=== PATIENT | female | born 1955 | race African-American/Black ===

== ENCOUNTER 2017-07-25 18:05 | Emergency (ER) | payer MEDICARE, MEDICAID ==
[~2017-07-25] VITALS: Ht 165.1 cm; Wt 61.0 kg
[~2017-07-25 18:05] MED LIST: AROM25 MT; ATOR10TA69 PO; BENA20TA3 PO; OMEP20CA10 PO
[2017-07-25] MEDS ORDERED: SODIUM CHLORIDE 0.9% 1,000 ML IV ONE (18:45)
[2017-07-25] MEDS ORDERED: METOCLOPRAMIDE HCL 10MG/2ML VIAL IV ONE (18:45)
[2017-07-25] MEDS ORDERED: DIPHENHYDRAMINE 50MG/ML VIAL IV ONE (18:45)
[2017-07-25 19:50] LABS: CHLORIDE 105 mEq/L (98-107); TROPONIN I < 0.02 ng/mL (0.00-0.04)
[2017-07-25 19:53] LABS: BASOPHILS % 0.4 % (0.0-2.0); HEMATOCRIT. 36.4 % (36.0-48.0); HEMOGLOBIN. 12.4 g/dL (12.0-16.0); LYMPHOCYTES % 25.3 % (20.0-50.0); MEAN CORPUSCULAR HEMOGLOBIN 33.7 pg (28.0-32.0); MEAN PLATELET VOLUME 8.6 fl (7.4-10.4); NEUTROPHILS % 64.3 % (40.0-76.0); PLATELET 248 x1000/uL (130-400); RED BLOOD CELL COUNT 3.68 mill/uL (4.2-5.4); RED CELL DISTRIBUTION WIDTH 12.4 % (11.6-14.6)
[2017-07-25] MEDS ORDERED: PROCHLORPERAZINE 10MG/2ML VIAL IV NR (21:00)
[2017-07-25] MEDS ORDERED: KETOROLAC 15MG/ML VIAL IV ONE (22:15)
[2017-07-26 00:11] VITALS: BP 137/86
== END 2017-07-26 00:34 | disposition home or self-care (01) ==
LOC: ER 20:09
DX: R51 Headache (principal); R11.2 Nausea with vomiting, unspecified; R42 Dizziness and giddiness; I10 Essential (primary) hypertension; J44.9 Chronic obstructive pulmonary disease, unspecified; K21.9 Gastro-esophageal reflux disease without esophagitis; Z85.3 Personal history of malignant neoplasm of breast; Z90.710 Acquired absence of both cervix and uterus
CPT/HCPCS: 36415; 70450; 71045; 80053; 84484; 85025; 93005; 96361; 96374; 96375; 99285; J0780; J1200; J1885; J7030

== ENCOUNTER 2019-01-15 11:16 | Emergency (ER) | payer MEDICARE, MEDICAID ==
[~2019-01-15] VITALS: Ht 165.1 cm; Wt 63.0 kg
[~2019-01-15 11:16] MED LIST changes: +BENA20TA10 PO; -BENA20TA3 PO; -OMEP20CA10 PO; +OMEP20CA5 PO
[2019-01-15] MEDS ORDERED: KETOROLAC 30MG/ML VIAL IV STA (18:34)
[2019-01-15 18:56] LABS: BASOPHILS % 1.6 % (0.0-2.0); HEMATOCRIT. 40.2 % (36.0-48.0); HEMOGLOBIN. 13.6 g/dL (12.0-16.0); LYMPHOCYTES % 41.3 % (20.0-50.0); MEAN CORPUSCULAR HEMOGLOBIN 33.7 pg (28.0-32.0); MEAN CORPUSCULAR VOLUME 99.6 fL (81.0-99.0); MEAN PLATELET VOLUME 8.4 fl (7.4-10.4); MONOCYTES % 9.9 % (2.0-8.0); NEUTROPHILS % 46.2 % (40.0-76.0); PLATELET 257 x1000/uL (130-400); RED BLOOD CELL COUNT 4.03 mill/uL (4.2-5.4); RED CELL DISTRIBUTION WIDTH 12.9 % (11.6-14.6)
[2019-01-15 18:59] LABS: CHLORIDE 107 mEq/L (98-107)
[2019-01-15] MEDS ORDERED: ONDANSETRON HCL 4MG/2ML INJ IV ONE (19:00)
[2019-01-15] MEDS ORDERED: MORPHINE SULFATE 4 MG/ML CPJ (NOT FOR IM USE) IV ONE (19:00)
[2019-01-15 23:02] VITALS: BP 140/85
== END 2019-01-15 23:03 | disposition home or self-care (01) ==
LOC: ER 13:10
DX: M54.12 Radiculopathy, cervical region (principal); I10 Essential (primary) hypertension; Z90.10 Acquired absence of unspecified breast and nipple
CPT/HCPCS: 36415; 71045; 72125; 73060; 80053; 84484; 85025; 93005; 93971; 96374; 96375; 99284; J1885; J2270; J2405

== ENCOUNTER 2023-03-30 19:09 | Emergency (ER) | payer MEDICARE, MEDICAID ==
[~2023-03-30] VITALS: Ht 165.1 cm; Wt 65.9 kg
[~2023-03-30 19:09] MED LIST changes: +BENA-8 PO; -BENA20TA10 PO; +OMEP20CA14 PO; -OMEP20CA5 PO
[2023-03-30 19:21] VITALS: O2SAT 98
[2023-03-30] MEDS ORDERED: CYCLOBENZAPRINE 10MG TABLET PO ONE (20:00)
[2023-03-30] MEDS ORDERED: ACETAMINOPHEN 500MG TABLET PO ONE (20:00)
[2023-03-30] MEDS ORDERED: ACET-2708 MT (21:55)
[2023-03-30] MEDS ORDERED: CYCL7.5T25 MT (21:55)
[2023-03-30] MEDS ORDERED: ACETAMINOPHEN 500MG TABLET PO NR (23:00)
[2023-03-30] MEDS ORDERED: CYCLOBENZAPRINE 10MG TABLET PO NR (23:00)
[2023-03-30 23:15] VITALS: BP 162/89; PULSE 85; RESP 22; TEMP 98.9
== END 2023-03-30 23:25 | disposition home or self-care (01) ==
LOC: ER 19:25
DX: M79.605 Pain in left leg (principal); I10 Essential (primary) hypertension; M19.90 Unspecified osteoarthritis, unspecified site; Z90.710 Acquired absence of both cervix and uterus; Z96.653 Presence of artificial knee joint, bilateral; Z90.13 Acquired absence of bilateral breasts and nipples; Z98.890 Other specified postprocedural states; Z85.3 Personal history of malignant neoplasm of breast
CPT/HCPCS: 73502; 93971; 99284

== ENCOUNTER 2025-01-16 04:10 | Inpatient (IN) | payer MEDICARE, MEDICAID ==
[~2025-01-16] VITALS: Ht 165.1 cm; Wt 81.6 kg
[~2025-01-16 04:10] MED LIST changes: +ACET-2708 MT; +CYCL7.5T25 MT
[2025-01-16] MEDS: METHOCARBAMOL 500MG TABLET PO ONE (06:21)
[2025-01-16] MEDS: KETOROLAC 15MG/ML VIAL IM ONE (06:21)
[2025-01-16 07:40] LABS: BASOPHILS % 0.7 % (0.0-2.0); EOSINOPHILS % 0.5 % (0.0-5.0); HEMATOCRIT. 39.7 % (36.0-48.0); HEMOGLOBIN. 13.3 g/dL (12.0-16.0); LYMPHOCYTES % 22.6 % (20.0-50.0); MEAN PLATELET VOLUME 8.0 fl (7.4-10.4); MONOCYTES % 8.3 % (2.0-8.0); NEUTROPHILS % 67.9 % (40.0-76.0); PLATELET 250 x1000/uL (130-400); RED BLOOD CELL COUNT 3.98 mill/uL (4.2-5.4); RED CELL DISTRIBUTION WIDTH 12.0 % (11.6-14.6)
[2025-01-16 07:54] LABS: CREATININE 0.7 mg/dL (0.6-1.0); UREA NITROGEN BLOOD 14 mg/dL (9-23)
[2025-01-16] MEDS: MORPHINE SULFATE 4 MG/ML INJ (FOR IV/IM USE) IV ONE (08:38)
[2025-01-16] MEDS: ACETAMINOPHEN 325MG TABLET PO ONE (08:39)
[2025-01-16] MEDS ORDERED: IPRATROPIUM/ALBUTEROL 0.5-3(2.5)MG/3ML NEB HHN PRN (09:15)
[2025-01-16] MEDS ORDERED: DOCUSATE SODIUM 100MG CAPSULE PO PRN (09:15)
[2025-01-16] MEDS ORDERED: ACETAMINOPHEN 325MG TABLET PO PRN ×2 (09:15)
[2025-01-16] MEDS ORDERED: ONDANSETRON HCL 4MG/2ML INJ IV PRN (09:15)
[2025-01-16 09:50] VITALS: BP 169/88; PULSE 75; RESP 16; TEMP 36.4; O2SAT 100
[2025-01-16] MEDS ORDERED: SODIUM CHLORIDE 0.9% 100 ML IV SCH (10:00)
[2025-01-16] MEDS: AMLODIPINE 10MG TABLET PO SCH (10:40)
[2025-01-16] MEDS: KETOROLAC 15MG/ML VIAL IV PRN (10:40)
[2025-01-16] MEDS: SODIUM CHLORIDE 0.45% 1,000 ML IV ONE (12:00)
[2025-01-16 12:08] VITALS: BP 169/88; PULSE 75; RESP 16; TEMP 36.418
[2025-01-16 12:42] LABS: PHOSPHORUS 3.4 mg/dL (2.5-4.9)
[2025-01-16 13:24] LABS: *AMPHETAMINES SCREEN URINE NEGATIVE (NEGATIVE); *BARBITURATES SCREEN URINE NEGATIVE (NEGATIVE); *BENZODIAZEPINES SCREEN URINE NEGATIVE (NEGATIVE); *COCAINE SCREEN URINE NEGATIVE (NEGATIVE); METHADONE URINE SCREEN NEGATIVE (NEGATIVE); OPIATES URINE SCREEN PRESUMPTIVE POSITIVE (NEGATIVE); PHENCYCLIDINE URINE SCREEN NEGATIVE (NEGATIVE)
[2025-01-16 13:25] LABS: CANNABINOID URINE SCREEN NEGATIVE (NEGATIVE); ECSTASY MDMA SCREEN URINE NEGATIVE (NEGATIVE)
[2025-01-16] MEDS: CLONIDINE 0.1MG TABLET PO PRN (14:15)
[2025-01-16] MEDS ORDERED: LOTEN PO SCH (18:00)
[2025-01-16] MEDS: LISINOPRIL 20MG TABLET PO SCH (18:00)
[2025-01-16 18:48] LABS: HEPATITIS C AB NON REACTIVE (Neg) (Negative)
[2025-01-16 20:00] VITALS: BP 130/74; PULSE 76; RESP 20; TEMP 36.3; O2SAT 95
[2025-01-16] MEDS: ATORVASTATIN CALCIUM 10MG TABLET PO SCH (21:01)
[2025-01-16] MEDS: ENOXAPARIN 30MG/0.3ML SYR SUBCUT SCH (21:19)
[2025-01-17] VITALS: BP 158/87; PULSE 80; RESP 20; TEMP 35.9; O2SAT 95
[2025-01-17 03:34] LABS: CLARITY URINE CLEAR (CLEAR); COLOR URINE YELLOW (YELLOW); GLUCOSE URINE NEGATIVE (NEGATIVE); KETONES URINE NEGATIVE (NEGATIVE); PH URINE 6.0 (4.5-8.0); PROTEIN URINE NEGATIVE (NEGATIVE); SPECIFIC GRAVITY URINE 1.020 (1.005-1.030)
[2025-01-17 03:35] LABS: LEUKOCYTE ESTERASE URINE NEGATIVE (NEGATIVE); NITRITE URINE NEGATIVE (NEGATIVE); OCCULT BLOOD URINE TRACE (NEGATIVE); UROBILINOGEN URINE 0.2 E.U./dL (0.2-1.0)
[2025-01-17 03:46] LABS: WBC URINE 0-2 /hpf (0-2)
[2025-01-17 03:47] LABS: BACTERIA URINE TRACE; SQUAMOUS EPITHELIAL CELL URINE RARE /lpf (RARE/1+)
[2025-01-17 03:50] LABS: CALCIUM OXALATE CRYSTALS URINE 1+ /lpf
[2025-01-17 04:00] VITALS: BP 166/87; PULSE 79; RESP 20; TEMP 36.2; O2SAT 98
[2025-01-17] MEDS: HYDROCODONE/ACETAMINOPHEN 5/325MG TABLET PO NR (05:08)
[2025-01-17] MEDS: PANTOPRAZOLE 40MG DR TABLET PO SCH (06:53)
[2025-01-17] MEDS ORDERED: NALOXONE HCL 0.4MG/ML VIAL IV PRN (07:45)
[2025-01-17 08:00] VITALS: BP 155/81; PULSE 80; RESP 18; TEMP 36.4; O2SAT 98
[2025-01-17] MEDS: HYDROCODONE/ACETAMINOPHEN 5/325MG TABLET PO PRN (08:23)
[2025-01-17] MEDS: AMLODIPINE 10MG TABLET PO SCH (08:29)
[2025-01-17 10:52] LABS: BASOPHILS % 0.5 % (0.0-2.0); EOSINOPHILS % 1.1 % (0.0-5.0); HEMATOCRIT. 37.3 % (36.0-48.0); HEMOGLOBIN. 12.5 g/dL (12.0-16.0); LYMPHOCYTES % 32.1 % (20.0-50.0); MEAN PLATELET VOLUME 8.7 fl (7.4-10.4); MONOCYTES % 10.3 % (2.0-8.0); NEUTROPHILS % 56.0 % (40.0-76.0); PLATELET 233 x1000/uL (130-400); RED BLOOD CELL COUNT 3.72 mill/uL (4.2-5.4); RED CELL DISTRIBUTION WIDTH 11.8 % (11.6-14.6)
[2025-01-17 11:31] LABS: CREATININE 0.9 mg/dL (0.6-1.0)
[2025-01-17 11:32] LABS: LDL CHOLESTEROL 107 mg/dL (5-100); TRIGLYCERIDE 110 mg/dL (0-150); UREA NITROGEN BLOOD 18 mg/dL (9-23)
[2025-01-17 12:00] VITALS: BP 107/53; PULSE 77; RESP 18; TEMP 36.7; O2SAT 100
[2025-01-17 16:00] VITALS: BP 116/65; PULSE 80; RESP 18; TEMP 36.3; O2SAT 98
[2025-01-17 20:00] VITALS: BP 129/60; PULSE 88; RESP 20; TEMP 36.2; O2SAT 95
[2025-01-17] MEDS ORDERED: LACTULOSE 20G/30ML UDC PO PRN (21:00)
[2025-01-18] VITALS: BP 161/82; PULSE 83; RESP 20; TEMP 36.3; O2SAT 100
[2025-01-18] MEDS: HYDRALAZINE HCL 25MG TABLET PO PRN (00:32)
[2025-01-18 04:00] VITALS: BP 154/80; PULSE 80; RESP 20; TEMP 36; O2SAT 96
[2025-01-18 08:00] VITALS: BP 140/87; PULSE 76; RESP 18; TEMP 36.4; O2SAT 99
[2025-01-18] MEDS: ENOXAPARIN 40MG/0.4ML SYR SUBCUT SCH (09:03)
[2025-01-18 12:00] VITALS: BP 117/57; PULSE 82; RESP 18; TEMP 36.4; O2SAT 97
[2025-01-18 16:00] VITALS: BP 135/65; PULSE 85; RESP 18; TEMP 36.4; O2SAT 99
[2025-01-18 20:00] VITALS: BP 110/64; PULSE 83; RESP 19; TEMP 36.7; O2SAT 98
[2025-01-18] MEDS: BACLOFEN 10MG TABLET PO SCH (21:12)
[2025-01-19] VITALS: BP 134/67; PULSE 75; RESP 19; TEMP 36.7; O2SAT 98
[2025-01-19 04:00] VITALS: BP 140/70; PULSE 75; RESP 19; TEMP 36.9; O2SAT 98
[2025-01-19 08:00] VITALS: BP 131/78; PULSE 75; RESP 18; TEMP 36.4; O2SAT 97
[2025-01-19 12:00] VITALS: BP 149/80; PULSE 88; RESP 20; TEMP 36.5; O2SAT 96
[2025-01-19 16:00] VITALS: BP 142/79; PULSE 82; RESP 20; TEMP 36.4; O2SAT 97
[2025-01-19] MEDS ORDERED: TRAM50TA3 MT (17:25)
[2025-01-19] MEDS ORDERED: BACL-141 PO (17:25)
[2025-01-19 20:00] VITALS: BP 117/69; PULSE 82; RESP 17; TEMP 36.9; O2SAT 97
[2025-01-20] VITALS: BP 119/70; PULSE 80; RESP 17; TEMP 36.6; O2SAT 98
[2025-01-20 04:00] VITALS: BP 115/70; PULSE 72; RESP 18; TEMP 37.1; O2SAT 97
[2025-01-20 08:00] VITALS: BP 120/62; PULSE 72; RESP 20; TEMP 35.4; O2SAT 97
[2025-01-20] MEDS ORDERED: DICL75TA5 PO (08:24)
[2025-01-20] MEDS ORDERED: KETOROLAC 15MG/ML VIAL IV PRN (08:30)
[2025-01-20 10:00] VITALS: BP 112/52; PULSE 77; TEMP 97.8; O2SAT 95
[2025-01-20 12:00] VITALS: BP 112/52; PULSE 77; RESP 20; TEMP 35.1; O2SAT 95
== END 2025-01-20 14:30 | disposition home or self-care (01) | DRG 552 ==
LOC: ER 04:10 → 6EST 08:04 → EDBEDREQ 08:13 → EDBEDREQTM 08:13 → ENRESERV 08:34
PROVIDERS: ADMIT Hospitalist; ATTEND Hospitalist
DX: M48.061 Spinal stenosis, lumbar region without neurogenic claudication (principal); G82.20 Paraplegia, unspecified; M51.16 Intervertebral disc disorders with radiculopathy, lumbar region; M47.26 Other spondylosis with radiculopathy, lumbar region; E83.52 Hypercalcemia; I10 Essential (primary) hypertension; E78.5 Hyperlipidemia, unspecified; M06.9 Rheumatoid arthritis, unspecified; M51.379 Other intervertebral disc degeneration, lumbosacral region without mention of lumbar back pain or lower extremity pain; Z96.651 Presence of right artificial knee joint; Z85.3 Personal history of malignant neoplasm of breast; Z87.891 Personal history of nicotine dependence; Z90.11 Acquired absence of right breast and nipple; Z90.710 Acquired absence of both cervix and uterus; Z82.49 Family history of ischemic heart disease and other diseases of the circulatory system; Z83.3 Family history of diabetes mellitus
CPT/HCPCS: 36415; 72100; 72146; 72148; 80048; 80061; 80305; 81003; 82330; 83735; 84100; 85025; 85651; 86705; 87340; 97110; 97162; 97166; 97530; 97535; 99285; A4606; J1650; J1885; J2270